=== PATIENT | male | born 1940 | race Caucasian/White ===

== ENCOUNTER 2017-06-26 10:20 | Inpatient (IN) | payer MEDICARE ==
[~2017-06-26] VITALS: Ht 185.4 cm; Wt 130.7 kg
[~2017-06-26 10:20] MED LIST: ALLO100T30 PO; ALLO300T PO; APIX2.5T PO; APIX5TAB PO; ASPI-496 PO; AZIT500T PO; AZIT600T2 PO; CIPR500T87 PO; CLIN300C93 PO; DILT120T3 PO; DILT240C PO; DILT240C9 PO; FURO-92 PO; FURO-93 PO; FURO40TA6 PO; LOSA1TAB17 PO; METF500T4 PO; METO25TA35 PO; METO25TA91 PO; OXYC10TA6 PO; POTA20TA6 PO; PRAZ2CAP2 PO; PRAZ5CAP2 PO; SPIR25TA3 PO; TAMS-11 PO; TAMS0.4C2 PO; WARF5TAB PO; ZOLP10TA PO; ZOLP10TA5 PO
[2017-06-26] MEDS ORDERED: SODIUM CHLORIDE 0.9% 1,000 ML IV ONE (10:48)
[2017-06-26] MEDS ORDERED: ONDANSETRON 2MG/ML, 2ML IVPush ONE (11:00)
[2017-06-26] MEDS ORDERED: SODIUM CHLORIDE FLUSH 10ML SYR IVF ONE (11:00)
[2017-06-26] MEDS ORDERED: SODIUM CHLORIDE 0.9% 1,000ML IVBOLUS ONE (11:00)
[2017-06-26] MEDS ORDERED: FAMOTIDINE 20 MG/2 ML IVP ONE (11:00)
[2017-06-26] MEDS ORDERED: FAMOTIDINE 20 MG/2 ML ONE (11:07)
[2017-06-26] MEDS ORDERED: ONDANSETRON 2MG/ML, 2ML ONE (11:07)
[2017-06-26] MEDS ORDERED: HYDROmorphone 1 MG/ML, 1ML ONE (11:07)
[2017-06-26] MEDS: HYDROmorphone 1 MG/ML, 1ML IVPush PRN ×3 (11:35→14:34)
[2017-06-26 11:52] LABS: ASPARTATE AMINO TRANSFERASE 15 U/L (15-37); BLOOD UREA NITROGEN 40 mg/dL (7-18)
[2017-06-26 11:57] LABS: IS PT STATUS REG ER OR PRE ER? YES
[2017-06-26] MEDS ORDERED: CEFTRIAXONE PMX 1GM/50ML 50 ML IVPB ONE (12:00)
[2017-06-26] MEDS: AZITHROMYCIN 500 MG in SODIUM CHLORIDE 0.9% 250 ML IV ONE ×2 (12:00→13:35)
[2017-06-26] MEDS ORDERED: CEFTRIAXONE PMX 1GM/50ML 50 ML ONE (12:13)
[2017-06-26] MEDS: SODIUM CHLORIDE 0.9% 1,000 ML IV SCH (14:07)
[2017-06-26] MEDS: CEFTRIAXONE PMX 2GM/50ML 50 ML IV SCH (14:30)
[2017-06-26] MEDS ORDERED: ONDANSETRON 2MG/ML, 2ML IVPush PRN (14:30)
[2017-06-26 15:00] VITALS: BP 115/73
[2017-06-26] MEDS: AZITHROMYCIN 500 MG in SODIUM CHLORIDE 0.9% 250 ML IV SCH (15:49)
[2017-06-26] MEDS: METOCLOPRAMIDE 5 MG/ML, 2ML IV SCH ×2 (16:03→23:40)
[2017-06-26] MEDS: METHYLNALTREXONE 12 MG/0.6 ML SQ SCH (16:03)
[2017-06-26] MEDS: OXYcodone IR 5MG TABLET PO PRN (16:08)
[2017-06-26 18:38] VITALS: BP 93/62
[2017-06-26] MEDS: METOPROLOL TARTRATE 25 MG TABLET PO SCH (20:56)
[2017-06-26] MEDS: APIXABAN 2.5 MG TABLET PO SCH (20:56)
[2017-06-27 02:39] VITALS: BP 110/64
[2017-06-27 05:14] LABS: ASPARTATE AMINO TRANSFERASE 12 U/L (15-37); BLOOD UREA NITROGEN 40 mg/dL (7-18)
[2017-06-27] MEDS: SODIUM CHLORIDE 0.9% 1,000 ML IV SCH ×2 (05:16→14:54)
[2017-06-27 06:44] VITALS: BP 110/65
[2017-06-27] MEDS: METOCLOPRAMIDE 5 MG/ML, 2ML IV SCH ×3 (08:25→23:02)
[2017-06-27] MEDS: LOSARTAN 50MG TABLET PO SCH ×2 (09:00→15:45)
[2017-06-27] MEDS: DILTIAZEM 240 MG CAP.ER.24H PO SCH ×2 (09:00→15:45)
[2017-06-27] MEDS: TAMSULOSIN 0.4 MG CAP.ER.24H PO SCH ×2 (09:00→15:45)
[2017-06-27] MEDS: HYDROCHLOROTHIAZIDE 25 MG TABLET PO SCH ×2 (09:00→15:45)
[2017-06-27] MEDS: APIXABAN 2.5 MG TABLET PO SCH ×2 (09:00→20:33)
[2017-06-27] MEDS: ALLOPURINOL 300 MG TABLET PO SCH ×2 (09:00→15:45)
[2017-06-27] MEDS: METOPROLOL TARTRATE 25 MG TABLET PO SCH ×2 (09:00→20:33)
[2017-06-27 13:30] VITALS: BP 115/70
[2017-06-27] MEDS: METHYLNALTREXONE 12 MG/0.6 ML SQ SCH (14:54)
[2017-06-27] MEDS: CEFTRIAXONE PMX 2GM/50ML 50 ML IV SCH (14:54)
[2017-06-27] MEDS: AZITHROMYCIN 500 MG in SODIUM CHLORIDE 0.9% 250 ML IV SCH (15:46)
[2017-06-27 18:59] VITALS: BP 115/65
[2017-06-27] MEDS: OXYcodone IR 5MG TABLET PO PRN (20:33)
[2017-06-27] MEDS: TEMAZEPAM 15 MG CAPSULE PO PRN (23:02)
[2017-06-28 03:01] VITALS: BP 117/72
[2017-06-28] MEDS: OXYcodone IR 5MG TABLET PO PRN ×4 (03:20→20:29)
[2017-06-28 07:20] VITALS: BP 110/69
[2017-06-28] MEDS: METOCLOPRAMIDE 5 MG/ML, 2ML IV SCH ×3 (07:56→23:07)
[2017-06-28] MEDS: DILTIAZEM 240 MG CAP.ER.24H PO SCH (08:25)
[2017-06-28] MEDS: HYDROCHLOROTHIAZIDE 25 MG TABLET PO SCH (08:26)
[2017-06-28] MEDS: APIXABAN 2.5 MG TABLET PO SCH ×2 (08:26→20:28)
[2017-06-28] MEDS: ALLOPURINOL 300 MG TABLET PO SCH (08:26)
[2017-06-28] MEDS: TAMSULOSIN 0.4 MG CAP.ER.24H PO SCH (08:26)
[2017-06-28] MEDS: METOPROLOL TARTRATE 25 MG TABLET PO SCH ×2 (08:26→20:28)
[2017-06-28] MEDS: LOSARTAN 50MG TABLET PO SCH (08:26)
[2017-06-28] MEDS: CEFTRIAXONE PMX 2GM/50ML 50 ML IV SCH (15:19)
[2017-06-28 16:06] VITALS: BP 117/71
[2017-06-28] MEDS: AZITHROMYCIN 500 MG in SODIUM CHLORIDE 0.9% 250 ML IV SCH (17:54)
[2017-06-28 18:40] LABS: ASPARTATE AMINO TRANSFERASE 9 U/L (15-37); BLOOD UREA NITROGEN 20 mg/dL (7-18)
[2017-06-28 20:00] VITALS: BP 101/64
[2017-06-28] MEDS: TEMAZEPAM 15 MG CAPSULE PO PRN (23:05)
[2017-06-29 02:00] VITALS: BP 116/76
[2017-06-29] MEDS: OXYcodone IR 5MG TABLET PO PRN ×2 (03:24→07:52)
[2017-06-29 06:47] VITALS: BP 127/77
[2017-06-29] MEDS: METOCLOPRAMIDE 5 MG/ML, 2ML IV SCH ×2 (07:51→15:17)
[2017-06-29] MEDS: DILTIAZEM 240 MG CAP.ER.24H PO SCH (07:51)
[2017-06-29] MEDS: METOPROLOL TARTRATE 25 MG TABLET PO SCH (07:52)
[2017-06-29] MEDS: APIXABAN 2.5 MG TABLET PO SCH (07:52)
[2017-06-29] MEDS: HYDROCHLOROTHIAZIDE 25 MG TABLET PO SCH (07:52)
[2017-06-29] MEDS: TAMSULOSIN 0.4 MG CAP.ER.24H PO SCH (07:52)
[2017-06-29] MEDS: ALLOPURINOL 300 MG TABLET PO SCH (07:52)
[2017-06-29] MEDS: LOSARTAN 50MG TABLET PO SCH (07:52)
[2017-06-29 14:22] VITALS: BP 133/68
[2017-06-29] MEDS: CEFTRIAXONE PMX 2GM/50ML 50 ML IV SCH (15:16)
[2017-06-29] MEDS: AZITHROMYCIN 500 MG in SODIUM CHLORIDE 0.9% 250 ML IV SCH (16:26)
[2017-06-29] MEDS ORDERED: AZIT500T77 PO (17:35)
[2017-06-29] MEDS ORDERED: APIXABAN 5 MG TABLET PO SCH (21:00)
== END 2017-06-29 17:50 | disposition home or self-care (01) | DRG 388 ==
LOC: ED 10:57 → EDIP 12:38 → 3NE 13:10
PROVIDERS: ADMIT Internal Medicine; ATTEND Internal Medicine
DX: K56.60 Unspecified intestinal obstruction (principal); J18.9 Pneumonia, unspecified organism; N17.9 Acute kidney failure, unspecified; J44.0 Chronic obstructive pulmonary disease with (acute) lower respiratory infection; E11.22 Type 2 diabetes mellitus with diabetic chronic kidney disease; I12.9 Hypertensive chronic kidney disease with stage 1 through stage 4 chronic kidney disease, or unspecified chronic kidney disease; I48.2 Chronic atrial fibrillation; N18.3 Chronic kidney disease, stage 3 (moderate); N20.0 Calculus of kidney; N40.0 Benign prostatic hyperplasia without lower urinary tract symptoms; Z79.01 Long term (current) use of anticoagulants; Z86.718 Personal history of other venous thrombosis and embolism
CPT/HCPCS: 36415; 71250; 74022; 74176; 80053; 81001; 83690; 84443; 84484; 85025; 87040; 87086; 87324; 93005; 96374; 96375; J0456; J0696; J1170; J2405; J2765; J7030; J7050; S0028

== ENCOUNTER 2017-11-15 15:38 | Emergency (ER) | payer MEDICARE ==
[~2017-11-15] VITALS: Ht 188 cm; Wt 100.0 kg
[~2017-11-15 15:38] MED LIST changes: +AZIT500T5 PO; -AZIT600T2 PO; +AZIT600T4 PO; +CLIN300C8 PO; -CLIN300C93 PO; -LOSA1TAB17 PO; +LOSA1TAB22 PO
[2017-11-15] MEDS ORDERED: SODIUM CHLORIDE FLUSH 10ML SYR IVF ONE (16:30)
[2017-11-15 16:43] LABS: HEMATOCRIT 38.6 % (39.2-51.8); HEMOGLOBIN 12.6 g/dL (13.7-18.0); WHITE BLOOD COUNT 8.6 x10^3/uL (3.4-10)
[2017-11-15 16:52] LABS: BLOOD UREA NITROGEN 39 mg/dL (7-18)
[2017-11-15 16:59] LABS: IS PT STATUS REG ER OR PRE ER? YES
[2017-11-15] MEDS ORDERED: FUROSEMIDE 20 MG/2 ML ONE (17:23)
[2017-11-15] MEDS ORDERED: FUROSEMIDE 20 MG/2 ML IV ONE (17:30)
[2017-11-15 18:18] VITALS: BP 118/72
== END 2017-11-15 18:45 | disposition home or self-care (01) ==
LOC: ED 18:30
DX: I48.2 Chronic atrial fibrillation (principal); I87.2 Venous insufficiency (chronic) (peripheral); I50.9 Heart failure, unspecified; E87.5 Hyperkalemia; J44.9 Chronic obstructive pulmonary disease, unspecified; M19.90 Unspecified osteoarthritis, unspecified site; E11.9 Type 2 diabetes mellitus without complications
CPT/HCPCS: 36415; 71010; 80048; 82040; 83880; 84484; 85025; 85610; 85730; 93005; 99285

== ENCOUNTER 2017-12-15 18:42 | Inpatient (IN) | payer MEDICARE ==
[~2017-12-15] VITALS: Ht 185.4 cm; Wt 122.5 kg
[2017-12-15 19:33] LABS: BASOPHILS # (AUTO) 0.04 x10^3/uL (0-0.1); BASOPHILS % (AUTO) 1 % (0-1); EOSINOPHILS # (AUTO) 0.15 x10^3/uL (0-0.4); EOSINOPHILS % (AUTO) 2 % (1-7); LYMPHOCYTES # (AUTO) 0.98 x10^3/uL (1-3.4); LYMPHOCYTES % (AUTO) 13 % (22-44); MD NO; MEAN CORPUSCULAR HGB CONC 31.8 g/dL (33.2-36.2); MEAN CORPUSCULAR VOLUME 97.4 fL (81-97); MEAN PLATELET VOLUME 8.8 fL (7.4-10.4); MONOCYTES # (AUTO) 0.59 x10^3/uL (0.2-0.8); MONOCYTES % (AUTO) 8 % (2-9); NEUTROPHILS # (AUTO) 5.61 x10^3/uL (1.8-6.8); NEUTROPHILS % (AUTO) 76 % (42-75); PLATELET COUNT 222 x10^3/uL (130-400); RED BLOOD COUNT 3.69 x10^6/uL (4.38-5.82); RED CELL DISTRIBUTION WIDTH 16.3 % (9.4-14.8)
[2017-12-15 19:44] LABS: ALBUMIN 3.3 g/dL (3.4-5.0); ANION GAP 9 mmol/L (5-15); CALCIUM 8.4 mg/dL (8.5-10.1); CHLORIDE 110 mmol/L (98-107)
[2017-12-15 19:46] LABS: SALICYLATE LEVEL < 1.7 mg/dL (2.8-20.0)
[2017-12-15 19:47] LABS: ALANINE AMINOTRANSFERASE 12 U/L (12-78); ALKALINE PHOSPHATASE 98 U/L (45-117); BILIRUBIN,TOTAL 0.7 mg/dL (0.2-1.0); CREATININE 2.91 mg/dL (0.7-1.3)
[2017-12-15 19:48] LABS: ACETAMINOPHEN < 2 mcg/mL (10-30)
[2017-12-15 19:50] LABS: INTERNATIONAL NORMALIZED RATIO 1.13 (0.93-1.1); PROTHROMBIN TIME 11.7 Seconds (9.6-11.5)
[2017-12-15 20:07] LABS: TROPONIN I < 0.015 ng/mL (0.000-0.045)
[2017-12-15] MEDS ORDERED: SODIUM CHLORIDE 0.9% 1,000 ML IV ONE (21:08)
[2017-12-15 21:10] LABS: AMPHETAMINE SCREEN, URINE Negative (Negative); BARBITURATE SCREEN, URINE Negative (Negative); BENZODIAZEPINE SCREEN, URINE Negative (Negative); CANNABINOID SCREEN, URINE Negative (Negative); COCAINE SCREEN, URINE Negative (Negative); METHADONE SCREEN, URINE Positive (Negative); OPIATE SCREEN, URINE Positive (Negative)
[2017-12-15 21:12] LABS: MICROSCOPIC NOT IND
[2017-12-15 21:23] LABS: CULTURE INDICATED? YES
[2017-12-15] MEDS ORDERED: CEFTRIAXONE PMX 1GM/50ML 50 ML IVPB ONE (21:30)
[2017-12-15] MEDS ORDERED: AZITHROMYCIN 500 MG in SODIUM CHLORIDE 0.9% 250 ML IVPB ONE (21:30)
[2017-12-15] MEDS ORDERED: CEFTRIAXONE PMX 1GM/50ML 50 ML ONE (21:36)
[2017-12-15 22:27] VITALS: BP 123/81
[2017-12-15 22:30] VITALS: BP 123/81
[2017-12-16 01:31] VITALS: BP 125/74
[2017-12-16] MEDS ORDERED: CEFTRIAXONE PMX 1GM/50ML 50 ML IV SCH (02:30)
[2017-12-16] MEDS ORDERED: OXYcodone IR 5MG TABLET PO PRN ×2 (02:30→14:30)
[2017-12-16 02:54] LABS: TROPONIN I < 0.015 ng/mL (0.000-0.045)
[2017-12-16] MEDS: METOPROLOL TARTRATE 25 MG TABLET PO SCH ×3 (02:54→17:11)
[2017-12-16] MEDS: PRAZOSIN 5 MG CAPSULE PO SCH ×2 (02:55→21:52)
[2017-12-16 03:55] VITALS: BP 106/82
[2017-12-16] MEDS: AZITHROMYCIN 250 MG in SODIUM CHLORIDE 0.9% 250 ML IV SCH (04:34)
[2017-12-16 06:00] VITALS: BP 99/63
[2017-12-16] MEDS: INSULIN LISPRO 100 UNITS/ML, PEN LOW DOSE SS SQ-INSULIN SCH ×4 (07:00→21:00)
[2017-12-16 07:44] LABS: BASOPHILS # (AUTO) 0.04 x10^3/uL (0-0.1); BASOPHILS % (AUTO) 1 % (0-1); EOSINOPHILS # (AUTO) 0.14 x10^3/uL (0-0.4); EOSINOPHILS % (AUTO) 2 % (1-7); LYMPHOCYTES # (AUTO) 1.23 x10^3/uL (1-3.4); LYMPHOCYTES % (AUTO) 19 % (22-44); MD NO; MEAN CORPUSCULAR HGB CONC 32.4 g/dL (33.2-36.2); MEAN CORPUSCULAR VOLUME 95.7 fL (81-97); MEAN PLATELET VOLUME 8.5 fL (7.4-10.4); MONOCYTES % (AUTO) 9 % (2-9); NEUTROPHILS % (AUTO) 70 % (42-75); PLATELET COUNT 188 x10^3/uL (130-400); RED BLOOD COUNT 3.41 x10^6/uL (4.38-5.82); RED CELL DISTRIBUTION WIDTH 16.5 % (9.4-14.8)
[2017-12-16 07:45] LABS: ANION GAP 8 mmol/L (5-15); CALCIUM 8.1 mg/dL (8.5-10.1); CHLORIDE 112 mmol/L (98-107); CREATININE 2.36 mg/dL (0.7-1.3)
[2017-12-16 07:46] LABS: % IRON SATURATION 35 % (20-55); ABSOLUTE RETICS # 0.03 x10^6/uL (0.5-1.5); IRON LEVEL 81 mcg/dL (65-175); RED BLOOD COUNT 3.4 x10^6/uL (4.38-5.82); RETICULOCYTE COUNT % 0.89 % (0.5-1.5); TOTAL IRON BINDING CAPACITY 231 mcg/dL (250-450)
[2017-12-16 07:51] LABS: TROPONIN I < 0.015 ng/mL (0.000-0.045)
[2017-12-16 08:12] LABS: FOLATE LEVEL 5.1 ng/mL (3.1-17.5)
[2017-12-16 08:37] LABS: HEMOGLOBIN A1C 5.9 % (4.2-6.3)
[2017-12-16] MEDS: SODIUM CHLORIDE FLUSH 3ML SYRINGE IVF SCH ×2 (08:53→21:00)
[2017-12-16] MEDS: ALLOPURINOL 100 MG TABLET PO SCH (08:53)
[2017-12-16] MEDS ORDERED: APIXABAN 2.5 MG TABLET PO SCH (09:00)
[2017-12-16 10:10] VITALS: BP 127/72
[2017-12-16 13:01] VITALS: BP 115/72
[2017-12-16] MEDS ORDERED: ZOLP10TA PO (14:00)
[2017-12-16] MEDS ORDERED: ZOLPIDEM 5MG TABLET PO PRN (14:30)
[2017-12-16] MEDS: SODIUM CHLORIDE 0.9% 1,000 ML IV SCH (17:11)
[2017-12-16 20:48] VITALS: BP 118/72
[2017-12-16] MEDS ORDERED: APIXABAN 5 MG TABLET PO SCH (21:00)
[2017-12-16] MEDS: APIXABAN 5 MG TABLET PO SCH (21:52)
[2017-12-16] MEDS: TAMSULOSIN 0.4 MG CAP.ER.24H PO SCH (21:52)
[2017-12-17] VITALS: BP 129/78
[2017-12-17] MEDS: CEFTRIAXONE 1,000 MG in SODIUM CHLORIDE 0.9% 50 ML IV SCH (02:06)
[2017-12-17] MEDS: AZITHROMYCIN 250 MG in SODIUM CHLORIDE 0.9% 250 ML IV SCH (02:44)
[2017-12-17 04:04] VITALS: BP 122/82
[2017-12-17 05:12] LABS: BASOPHILS # (AUTO) 0.03 x10^3/uL (0-0.1); BASOPHILS % (AUTO) 0 % (0-1); EOSINOPHILS # (AUTO) 0.13 x10^3/uL (0-0.4); EOSINOPHILS % (AUTO) 2 % (1-7); LYMPHOCYTES # (AUTO) 1.26 x10^3/uL (1-3.4); LYMPHOCYTES % (AUTO) 19 % (22-44); MD NO; MEAN CORPUSCULAR HEMOGLOBIN 31.3 pg (27.5-34.5); MEAN CORPUSCULAR HGB CONC 32.8 g/dL (33.2-36.2); MEAN CORPUSCULAR VOLUME 95.5 fL (81-97); MEAN PLATELET VOLUME 8.8 fL (7.4-10.4); MONOCYTES # (AUTO) 0.63 x10^3/uL (0.2-0.8); MONOCYTES % (AUTO) 10 % (2-9); NEUTROPHILS # (AUTO) 4.54 x10^3/uL (1.8-6.8); NEUTROPHILS % (AUTO) 69 % (42-75); PLATELET COUNT 179 x10^3/uL (130-400); RED BLOOD COUNT 3.27 x10^6/uL (4.38-5.82); RED CELL DISTRIBUTION WIDTH 16.4 % (9.4-14.8)
[2017-12-17 05:19] LABS: CHLORIDE 113 mmol/L (98-107)
[2017-12-17 05:28] LABS: ALANINE AMINOTRANSFERASE 10 U/L (12-78); ALBUMIN 2.7 g/dL (3.4-5.0); ALKALINE PHOSPHATASE 83 U/L (45-117); ANION GAP 6 mmol/L (5-15); BILIRUBIN,TOTAL 0.7 mg/dL (0.2-1.0); CALCIUM 7.8 mg/dL (8.5-10.1); CREATININE 2.05 mg/dL (0.7-1.3); TOTAL PROTEIN 5.9 g/dL (6.4-8.2)
[2017-12-17] MEDS: METOPROLOL TARTRATE 25 MG TABLET PO SCH ×2 (05:47→18:16)
[2017-12-17] MEDS: INSULIN LISPRO 100 UNITS/ML, PEN LOW DOSE SS SQ-INSULIN SCH ×4 (07:00→21:00)
[2017-12-17 08:22] VITALS: BP 132/85
[2017-12-17] MEDS: SODIUM CHLORIDE FLUSH 3ML SYRINGE IVF SCH ×2 (09:00→21:00)
[2017-12-17] MEDS: ALLOPURINOL 100 MG TABLET PO SCH (09:09)
[2017-12-17] MEDS: APIXABAN 5 MG TABLET PO SCH ×2 (09:10→21:27)
[2017-12-17] MEDS: SODIUM CHLORIDE 0.9% 1,000 ML IV SCH ×2 (09:10→22:32)
[2017-12-17] MEDS: HYDROCHLOROTHIAZIDE 25 MG TABLET PO SCH (09:10)
[2017-12-17] MEDS: LOSARTAN 50MG TABLET PO SCH (09:10)
[2017-12-17 11:48] LABS: % IRON SATURATION 20 % (20-55); IRON LEVEL 42 mcg/dL (65-175); TOTAL IRON BINDING CAPACITY 207 mcg/dL (250-450)
[2017-12-17 15:44] VITALS: BP 130/82
[2017-12-17 20:20] VITALS: BP 142/82
[2017-12-17] MEDS: TAMSULOSIN 0.4 MG CAP.ER.24H PO SCH (21:27)
[2017-12-17] MEDS: PRAZOSIN 5 MG CAPSULE PO SCH (21:27)
[2017-12-18 00:10] VITALS: BP 132/80
[2017-12-18] MEDS: CEFTRIAXONE 1,000 MG in SODIUM CHLORIDE 0.9% 50 ML IV SCH (02:01)
[2017-12-18] MEDS: AZITHROMYCIN 250 MG in SODIUM CHLORIDE 0.9% 250 ML IV SCH (02:41)
[2017-12-18 03:55] VITALS: BP 114/75
[2017-12-18 05:10] LABS: CHLORIDE 112 mmol/L (98-107)
[2017-12-18] MEDS: METOPROLOL TARTRATE 25 MG TABLET PO SCH ×2 (05:36→17:12)
[2017-12-18 05:41] LABS: % IRON SATURATION 22 % (20-55); ANION GAP 6 mmol/L (5-15); CALCIUM 7.9 mg/dL (8.5-10.1); CREATININE 1.56 mg/dL (0.7-1.3); IRON LEVEL 48 mcg/dL (65-175); TOTAL IRON BINDING CAPACITY 215 mcg/dL (250-450)
[2017-12-18 06:38] VITALS: BP 131/76
[2017-12-18] MEDS: INSULIN LISPRO 100 UNITS/ML, PEN LOW DOSE SS SQ-INSULIN SCH ×4 (07:00→20:12)
[2017-12-18] MEDS: SODIUM CHLORIDE FLUSH 3ML SYRINGE IVF SCH ×2 (09:00→20:16)
[2017-12-18] MEDS: ALLOPURINOL 100 MG TABLET PO SCH (09:01)
[2017-12-18] MEDS: LOSARTAN 50MG TABLET PO SCH (09:01)
[2017-12-18] MEDS: HYDROCHLOROTHIAZIDE 25 MG TABLET PO SCH (09:01)
[2017-12-18] MEDS: APIXABAN 5 MG TABLET PO SCH ×2 (09:01→20:12)
[2017-12-18 13:00] VITALS: BP 118/77
[2017-12-18] MEDS: SODIUM CHLORIDE 0.9% 1,000 ML IV SCH (16:13)
[2017-12-18 17:01] VITALS: BP 135/85
[2017-12-18] MEDS: FERROUS SULFATE 325 MG TABLET PO SCH (17:12)
[2017-12-18 18:28] VITALS: BP 130/70
[2017-12-18] MEDS: TAMSULOSIN 0.4 MG CAP.ER.24H PO SCH (20:12)
[2017-12-18] MEDS: PRAZOSIN 5 MG CAPSULE PO SCH (20:12)
[2017-12-19 01:16] VITALS: BP 128/78
[2017-12-19] MEDS: CEFTRIAXONE 1,000 MG in SODIUM CHLORIDE 0.9% 50 ML IV SCH (03:05)
[2017-12-19] MEDS: AZITHROMYCIN 250 MG in SODIUM CHLORIDE 0.9% 250 ML IV SCH (03:53)
[2017-12-19 05:06] LABS: ANION GAP 5 mmol/L (5-15); CALCIUM 7.7 mg/dL (8.5-10.1); CHLORIDE 112 mmol/L (98-107)
[2017-12-19] MEDS: METOPROLOL TARTRATE 25 MG TABLET PO SCH ×2 (05:26→18:15)
[2017-12-19 06:42] VITALS: BP 138/87
[2017-12-19] MEDS: SODIUM CHLORIDE 0.9% 1,000 ML IV SCH (06:42)
[2017-12-19] MEDS: INSULIN LISPRO 100 UNITS/ML, PEN LOW DOSE SS SQ-INSULIN SCH ×4 (07:00→20:14)
[2017-12-19] MEDS: FERROUS SULFATE 325 MG TABLET PO SCH ×2 (08:33→16:20)
[2017-12-19] MEDS: SODIUM CHLORIDE FLUSH 3ML SYRINGE IVF SCH ×2 (09:00→20:12)
[2017-12-19] MEDS: APIXABAN 5 MG TABLET PO SCH ×2 (09:34→20:13)
[2017-12-19] MEDS: LOSARTAN 50MG TABLET PO SCH (09:34)
[2017-12-19] MEDS: HYDROCHLOROTHIAZIDE 25 MG TABLET PO SCH (09:35)
[2017-12-19] MEDS: ALLOPURINOL 100 MG TABLET PO SCH (09:37)
[2017-12-19 12:42] VITALS: BP 123/78
[2017-12-19] MEDS: TAMSULOSIN 0.4 MG CAP.ER.24H PO SCH (20:13)
[2017-12-19] MEDS: PRAZOSIN 5 MG CAPSULE PO SCH (20:13)
[2017-12-19 20:14] VITALS: BP 167/88
[2017-12-20 01:33] VITALS: BP 127/79
[2017-12-20] MEDS: CEFTRIAXONE 1,000 MG in SODIUM CHLORIDE 0.9% 50 ML IV SCH (02:15)
[2017-12-20] MEDS: AZITHROMYCIN 250 MG in SODIUM CHLORIDE 0.9% 250 ML IV SCH (03:34)
[2017-12-20] MEDS: METOPROLOL TARTRATE 25 MG TABLET PO SCH (05:42)
[2017-12-20 06:45] VITALS: BP 142/87
[2017-12-20] MEDS: INSULIN LISPRO 100 UNITS/ML, PEN LOW DOSE SS SQ-INSULIN SCH ×2 (07:00→11:00)
[2017-12-20] MEDS: FERROUS SULFATE 325 MG TABLET PO SCH (07:45)
[2017-12-20] MEDS: SODIUM CHLORIDE FLUSH 3ML SYRINGE IVF SCH (09:47)
[2017-12-20] MEDS: ALLOPURINOL 100 MG TABLET PO SCH (09:48)
[2017-12-20] MEDS: APIXABAN 5 MG TABLET PO SCH (09:48)
[2017-12-20] MEDS: HYDROCHLOROTHIAZIDE 25 MG TABLET PO SCH (09:48)
[2017-12-20] MEDS: LOSARTAN 50MG TABLET PO SCH (09:50)
[2017-12-20 13:15] VITALS: BP 128/76
[2017-12-20] MEDS ORDERED: FERR-36 PO (13:49)
== END 2017-12-20 16:52 | disposition home health service (06) | DRG 70 ==
LOC: ED 20:47 → EDIP 21:09 → 4WST 22:13
PROVIDERS: ADMIT Internal Medicine; ATTEND Internal Medicine
DX: G93.40 Encephalopathy, unspecified (principal); J15.9 Unspecified bacterial pneumonia; J96.01 Acute respiratory failure with hypoxia; N17.9 Acute kidney failure, unspecified; E11.22 Type 2 diabetes mellitus with diabetic chronic kidney disease; D68.69 Other thrombophilia; E87.5 Hyperkalemia; I13.0 Hypertensive heart and chronic kidney disease with heart failure and stage 1 through stage 4 chronic kidney disease, or unspecified chronic kidney disease; F11.20 Opioid dependence, uncomplicated; I50.9 Heart failure, unspecified; J44.0 Chronic obstructive pulmonary disease with (acute) lower respiratory infection; N39.0 Urinary tract infection, site not specified; L03.115 Cellulitis of right lower limb; L03.116 Cellulitis of left lower limb; N18.3 Chronic kidney disease, stage 3 (moderate); Z66 Do not resuscitate; E66.9 Obesity, unspecified; E86.0 Dehydration; I35.0 Nonrheumatic aortic (valve) stenosis; I87.2 Venous insufficiency (chronic) (peripheral); I87.8 Other specified disorders of veins; I89.0 Lymphedema, not elsewhere classified; M10.9 Gout, unspecified; I27.29 Other secondary pulmonary hypertension; I48.2 Chronic atrial fibrillation; Z96.1 Presence of intraocular lens; Z96.651 Presence of right artificial knee joint; D63.8 Anemia in other chronic diseases classified elsewhere; M17.12 Unilateral primary osteoarthritis, left knee; N40.0 Benign prostatic hyperplasia without lower urinary tract symptoms; E61.1 Iron deficiency; Z68.35 Body mass index [BMI] 35.0-35.9, adult; Z79.01 Long term (current) use of anticoagulants; Z79.84 Long term (current) use of oral hypoglycemic drugs; Z79.899 Other long term (current) drug therapy; Z82.5 Family history of asthma and other chronic lower respiratory diseases; Z86.718 Personal history of other venous thrombosis and embolism; Z87.442 Personal history of urinary calculi; Z98.41 Cataract extraction status, right eye; Z98.42 Cataract extraction status, left eye; Z99.81 Dependence on supplemental oxygen; J01.20 Acute ethmoidal sinusitis, unspecified; J32.3 Chronic sphenoidal sinusitis
CPT/HCPCS: 36415; 70450; 71045; 80048; 80053; 80307; 80329; 81003; 82140; 82607; 82728; 82746; 82962; 83036; 83540; 83550; 83605; 83880; 84443; 84484; 85025; 85045; 85610; 87040; 87077; 87086; 87186; 93005; 93306; 93922; 96374; J0456; J0696; 29581-50; G0480; J1815; J7030; J7050

== ENCOUNTER 2018-01-03 21:59 | Inpatient (IN) | payer MEDICARE ==
[~2018-01-03] VITALS: Ht 185.4 cm; Wt 118.7 kg
[~2018-01-03 21:59] MED LIST changes: +FERR-51 PO
[2018-01-03] MEDS ORDERED: SODIUM CHLORIDE 0.9% 1,000ML IVBOLUS ONE (22:30)
[2018-01-03 23:03] LABS: BASOPHILS # (AUTO) 0.05 x10^3/uL (0-0.1); BASOPHILS % (AUTO) 1 % (0-1); EOSINOPHILS # (AUTO) 0.11 x10^3/uL (0-0.4); EOSINOPHILS % (AUTO) 1 % (1-7); LYMPHOCYTES # (AUTO) 1.27 x10^3/uL (1-3.4); LYMPHOCYTES % (AUTO) 13 % (22-44); MD NO; MEAN CORPUSCULAR HGB CONC 32.8 g/dL (33.2-36.2); MEAN CORPUSCULAR VOLUME 94.7 fL (81-97); MEAN PLATELET VOLUME 9.6 fL (7.4-10.4); MONOCYTES # (AUTO) 0.64 x10^3/uL (0.2-0.8); MONOCYTES % (AUTO) 6 % (2-9); NEUTROPHILS % (AUTO) 80 % (42-75); PLATELET COUNT 215 x10^3/uL (130-400); RED BLOOD COUNT 3.61 x10^6/uL (4.38-5.82); RED CELL DISTRIBUTION WIDTH 16.3 % (9.4-14.8)
[2018-01-03 23:19] LABS: ALBUMIN 3.4 g/dL (3.4-5.0); ANION GAP 14 mmol/L (5-15); CHLORIDE 105 mmol/L (98-107)
[2018-01-03 23:24] LABS: ALANINE AMINOTRANSFERASE 11 U/L (12-78); ALKALINE PHOSPHATASE 104 U/L (45-117); BILIRUBIN,TOTAL 0.6 mg/dL (0.2-1.0); CREATININE 7.11 mg/dL (0.7-1.3); TROPONIN I < 0.015 ng/mL (0.000-0.045)
[2018-01-03 23:27] LABS: MICROSCOPIC AUTO
[2018-01-03 23:28] LABS: CULTURE INDICATED? YES
[2018-01-03] MEDS ORDERED: CEFTRIAXONE PMX 1GM/50ML 50 ML ONE (23:52)
[2018-01-04] MEDS ORDERED: CEFTRIAXONE PMX 1GM/50ML 50 ML IV ONE
[2018-01-04] MEDS ORDERED: SODIUM CHLORIDE 0.9% 1,000ML IVBOLUS ONE
[2018-01-04] MEDS ORDERED: ONDANSETRON 2MG/ML, 2ML IVPush PRN ×2 (00:30→01:00)
[2018-01-04] MEDS: SODIUM CHLORIDE 0.9% 1,000 ML IV SCH ×3 (01:00→20:21)
[2018-01-04 03:52] VITALS: BP 85/52
[2018-01-04 04:00] VITALS: BP 79/34
[2018-01-04] MEDS ORDERED: ATROPINE SYRINGE 0.1 MG/ML, 10ML ONE (04:30)
[2018-01-04 04:46] LABS: ALBUMIN 2.9 g/dL (3.4-5.0); ANION GAP 11 mmol/L (5-15); BASOPHILS # (AUTO) 0.05 x10^3/uL (0-0.1); BASOPHILS % (AUTO) 1 % (0-1); CALCIUM 7.4 mg/dL (8.5-10.1); CHLORIDE 111 mmol/L (98-107); EOSINOPHILS # (AUTO) 0.28 x10^3/uL (0-0.4); EOSINOPHILS % (AUTO) 3 % (1-7); LYMPHOCYTES # (AUTO) 1.74 x10^3/uL (1-3.4); LYMPHOCYTES % (AUTO) 18 % (22-44); MD NO; MEAN CORPUSCULAR HEMOGLOBIN 31.1 pg (27.5-34.5); MEAN CORPUSCULAR HGB CONC 32.3 g/dL (33.2-36.2); MEAN CORPUSCULAR VOLUME 96.2 fL (81-97); MONOCYTES # (AUTO) 0.75 x10^3/uL (0.2-0.8); MONOCYTES % (AUTO) 8 % (2-9); NEUTROPHILS # (AUTO) 6.78 x10^3/uL (1.8-6.8); NEUTROPHILS % (AUTO) 71 % (42-75); PLATELET COUNT 175 x10^3/uL (130-400); RED CELL DISTRIBUTION WIDTH 16.2 % (9.4-14.8)
[2018-01-04] MEDS: APIXABAN 2.5 MG TABLET PO SCH ×3 (04:46→20:19)
[2018-01-04 04:49] LABS: ALANINE AMINOTRANSFERASE 9 U/L (12-78); ALKALINE PHOSPHATASE 90 U/L (45-117); BILIRUBIN,TOTAL 0.4 mg/dL (0.2-1.0); CREATININE 6.82 mg/dL (0.7-1.3); TOTAL PROTEIN 5.8 g/dL (6.4-8.2)
[2018-01-04] MEDS ORDERED: ATROPINE SYRINGE 0.1 MG/ML, 10ML IVPush PRN (05:00)
[2018-01-04] MEDS ORDERED: SODIUM CHLORIDE 0.9%, 500ML IV ONE (05:00)
[2018-01-04] MEDS ORDERED: SODIUM CHLORIDE 0.9% 1,000 ML IV SCH (05:00)
[2018-01-04] MEDS ORDERED: ATROPINE SYRINGE 0.1 MG/ML, 10ML IVPush ONE (05:00)
[2018-01-04 06:30] LABS: ALANINE AMINOTRANSFERASE 8 U/L (12-78); ALBUMIN 2.8 g/dL (3.4-5.0); ANION GAP 10 mmol/L (5-15); CALCIUM 7.4 mg/dL (8.5-10.1); CHLORIDE 111 mmol/L (98-107)
[2018-01-04 06:34] LABS: ALKALINE PHOSPHATASE 90 U/L (45-117); BILIRUBIN,TOTAL 0.5 mg/dL (0.2-1.0); TOTAL PROTEIN 5.8 g/dL (6.4-8.2); TROPONIN I < 0.015 ng/mL (0.000-0.045)
[2018-01-04] MEDS ORDERED: SODIUM CHLORIDE 0.9% 1,000ML IV ONE (09:00)
[2018-01-04] MEDS ORDERED: METHADONE 10 MG TABLET PO SCH (09:00)
[2018-01-04] MEDS ORDERED: GLUCAGON 1 MG IVPush ONE (10:00)
[2018-01-04] MEDS: POLYETHYLENE GLYCOL 17 GM PACKET PO SCH (11:31)
[2018-01-04] MEDS: INSULIN LISPRO 100 UNITS/ML, PEN SQ-INSULIN SCH ×3 (11:41→20:24)
[2018-01-04] MEDS: DOBUTAMINE 250 MG in SODIUM CHLORIDE 0.9% 230 ML IV PRN ×2 (15:53→20:20)
[2018-01-04] MEDS ORDERED: ALLOPURINOL 100 MG TABLET PO SCH (21:00)
[2018-01-04] MEDS ORDERED: TAMSULOSIN 0.4 MG CAP.ER.24H PO SCH (21:00)
[2018-01-04] MEDS: CEFTRIAXONE PMX 1GM/50ML 50 ML IV SCH (23:00)
[2018-01-05] MEDS: DOBUTAMINE 250 MG in SODIUM CHLORIDE 0.9% 230 ML IV PRN ×2 (02:57→08:13)
[2018-01-05] MEDS: METHADONE 10 MG TABLET PO PRN (03:24)
[2018-01-05 03:30] VITALS: BP 117/50
[2018-01-05 04:52] LABS: ALANINE AMINOTRANSFERASE 9 U/L (12-78); ALBUMIN 2.6 g/dL (3.4-5.0); ANION GAP 7 mmol/L (5-15); CALCIUM 6.8 mg/dL (8.5-10.1); CHLORIDE 115 mmol/L (98-107); CREATININE 5.09 mg/dL (0.7-1.3)
[2018-01-05 04:55] LABS: % IRON SATURATION 20 % (20-55); ALKALINE PHOSPHATASE 87 U/L (45-117); BILIRUBIN,TOTAL 0.8 mg/dL (0.2-1.0); IRON LEVEL 40 mcg/dL (65-175); TOTAL IRON BINDING CAPACITY 200 mcg/dL (250-450); TOTAL PROTEIN 5.1 g/dL (6.4-8.2)
[2018-01-05 05:45] LABS: BASOPHILS # (AUTO) 0.15 x10^3/uL (0-0.1); BASOPHILS % (AUTO) 2 % (0-1); EOSINOPHILS # (AUTO) 0.08 x10^3/uL (0-0.4); EOSINOPHILS % (AUTO) 1 % (1-7); LYMPHOCYTES # (AUTO) 1.17 x10^3/uL (1-3.4); LYMPHOCYTES % (AUTO) 14 % (22-44); MD SCAN; MEAN CORPUSCULAR HEMOGLOBIN 31.5 pg (27.5-34.5); MEAN CORPUSCULAR VOLUME 95.7 fL (81-97); MEAN PLATELET VOLUME 9.2 fL (7.4-10.4); MONOCYTES # (AUTO) 0.69 x10^3/uL (0.2-0.8); MONOCYTES % (AUTO) 8 % (2-9); NEUTROPHILS # (AUTO) 6.21 x10^3/uL (1.8-6.8); NEUTROPHILS % (AUTO) 75 % (42-75); PLATELET COUNT 121 x10^3/uL (130-400); RED BLOOD COUNT 2.97 x10^6/uL (4.38-5.82); RED CELL DISTRIBUTION WIDTH 16.5 % (9.4-14.8)
[2018-01-05] MEDS: INSULIN LISPRO 100 UNITS/ML, PEN SQ-INSULIN SCH ×4 (07:00→21:29)
[2018-01-05 07:31] LABS: CREATININE,URINE RANDOM 70.1 mg/dL
[2018-01-05] MEDS: SODIUM CHLORIDE 0.9% 1,000 ML IV SCH ×2 (08:00→15:34)
[2018-01-05] MEDS: POLYETHYLENE GLYCOL 17 GM PACKET PO SCH (09:33)
[2018-01-05] MEDS: APIXABAN 2.5 MG TABLET PO SCH ×2 (09:33→21:30)
[2018-01-05] MEDS: CEFTRIAXONE PMX 1GM/50ML 50 ML IV SCH (23:52)
[2018-01-06] MEDS: SODIUM CHLORIDE 0.9% 1,000 ML IV SCH ×2 (02:10→12:50)
[2018-01-06 04:00] VITALS: BP 106/51
[2018-01-06 05:30] LABS: BASOPHILS # (AUTO) 0.03 x10^3/uL (0-0.1); BASOPHILS % (AUTO) 0 % (0-1); EOSINOPHILS # (AUTO) 0.35 x10^3/uL (0-0.4); EOSINOPHILS % (AUTO) 4 % (1-7); LYMPHOCYTES # (AUTO) 1.31 x10^3/uL (1-3.4); LYMPHOCYTES % (AUTO) 16 % (22-44); MD NO; MEAN CORPUSCULAR HEMOGLOBIN 31.1 pg (27.5-34.5); MEAN CORPUSCULAR HGB CONC 32.3 g/dL (33.2-36.2); MEAN CORPUSCULAR VOLUME 96.2 fL (81-97); MEAN PLATELET VOLUME 9.1 fL (7.4-10.4); MONOCYTES # (AUTO) 0.75 x10^3/uL (0.2-0.8); MONOCYTES % (AUTO) 9 % (2-9); NEUTROPHILS # (AUTO) 5.91 x10^3/uL (1.8-6.8); NEUTROPHILS % (AUTO) 71 % (42-75); PLATELET COUNT 173 x10^3/uL (130-400); RED BLOOD COUNT 3.05 x10^6/uL (4.38-5.82); RED CELL DISTRIBUTION WIDTH 16.9 % (9.4-14.8)
[2018-01-06 05:35] LABS: ALANINE AMINOTRANSFERASE 12 U/L (12-78); ALBUMIN 2.5 g/dL (3.4-5.0); ANION GAP 6 mmol/L (5-15); CALCIUM 7.2 mg/dL (8.5-10.1); CHLORIDE 116 mmol/L (98-107); CREATININE 3.07 mg/dL (0.7-1.3)
[2018-01-06 05:38] LABS: ALKALINE PHOSPHATASE 81 U/L (45-117); BILIRUBIN,TOTAL 0.6 mg/dL (0.2-1.0); TOTAL PROTEIN 5.2 g/dL (6.4-8.2)
[2018-01-06] MEDS: INSULIN LISPRO 100 UNITS/ML, PEN SQ-INSULIN SCH ×4 (07:00→21:00)
[2018-01-06 07:40] VITALS: BP 125/65
[2018-01-06] MEDS: POLYETHYLENE GLYCOL 17 GM PACKET PO SCH (10:55)
[2018-01-06] MEDS: APIXABAN 2.5 MG TABLET PO SCH ×2 (10:55→21:48)
[2018-01-06 13:23] VITALS: BP 132/71
[2018-01-06] MEDS: FUROSEMIDE 20 MG TABLET PO SCH (16:47)
[2018-01-06 18:47] VITALS: BP 117/74
[2018-01-06] MEDS: METHADONE 10 MG TABLET PO PRN (23:18)
[2018-01-07] MEDS: CEFTRIAXONE PMX 1GM/50ML 50 ML IV SCH ×2 (00:02→23:49)
[2018-01-07 01:00] VITALS: BP 131/78
[2018-01-07] MEDS: INSULIN LISPRO 100 UNITS/ML, PEN SQ-INSULIN SCH ×4 (07:50→21:14)
[2018-01-07] MEDS: POLYETHYLENE GLYCOL 17 GM PACKET PO SCH (08:02)
[2018-01-07] MEDS: FUROSEMIDE 20 MG TABLET PO SCH ×2 (08:02→21:08)
[2018-01-07] MEDS: APIXABAN 2.5 MG TABLET PO SCH ×2 (08:02→21:09)
[2018-01-07 09:05] VITALS: BP 113/72
[2018-01-07] MEDS: METHADONE 10 MG TABLET PO PRN ×2 (11:21→21:09)
[2018-01-07 13:14] VITALS: BP 139/83
[2018-01-07] MEDS: METOPROLOL TARTRATE 25 MG TABLET PO SCH (17:01)
[2018-01-07 21:06] VITALS: BP 133/82
[2018-01-07] MEDS: ZOLPIDEM 10MG TABLET PO PRN (22:32)
[2018-01-08 02:15] VITALS: BP 116/68
[2018-01-08 04:33] LABS: ALANINE AMINOTRANSFERASE 8 U/L (12-78); ALBUMIN 2.5 g/dL (3.4-5.0); ANION GAP 7 mmol/L (5-15); CALCIUM 7.6 mg/dL (8.5-10.1); CHLORIDE 108 mmol/L (98-107); CREATININE 1.69 mg/dL (0.7-1.3)
[2018-01-08 04:36] LABS: ALKALINE PHOSPHATASE 82 U/L (45-117); BILIRUBIN,TOTAL 0.5 mg/dL (0.2-1.0); TOTAL PROTEIN 5.7 g/dL (6.4-8.2)
[2018-01-08] MEDS: METOPROLOL TARTRATE 25 MG TABLET PO SCH ×2 (05:46→16:55)
[2018-01-08] MEDS: METHADONE 10 MG TABLET PO PRN ×2 (05:46→16:58)
[2018-01-08] MEDS: INSULIN LISPRO 100 UNITS/ML, PEN SQ-INSULIN SCH ×4 (07:00→19:40)
[2018-01-08] MEDS: FUROSEMIDE 20 MG TABLET PO SCH ×2 (09:00→09:49)
[2018-01-08] MEDS: APIXABAN 2.5 MG TABLET PO SCH ×2 (09:49→19:39)
[2018-01-08] MEDS: POLYETHYLENE GLYCOL 17 GM PACKET PO SCH (09:49)
[2018-01-08 09:58] VITALS: BP 112/72
[2018-01-08 14:15] VITALS: BP 102/68
[2018-01-08 16:54] VITALS: BP 103/67
[2018-01-08 19:38] VITALS: BP 116/77
[2018-01-08] MEDS: ZOLPIDEM 10MG TABLET PO PRN (22:27)
[2018-01-08 23:53] VITALS: BP 103/61
[2018-01-09] MEDS: CEFTRIAXONE PMX 1GM/50ML 50 ML IV SCH (01:38)
[2018-01-09] MEDS: METHADONE 10 MG TABLET PO PRN (01:43)
[2018-01-09 06:03] VITALS: BP 117/76
[2018-01-09] MEDS: METOPROLOL TARTRATE 25 MG TABLET PO SCH (06:05)
[2018-01-09] MEDS: INSULIN LISPRO 100 UNITS/ML, PEN SQ-INSULIN SCH ×2 (07:00→11:00)
[2018-01-09 07:58] VITALS: BP 105/70
[2018-01-09] MEDS: FUROSEMIDE 20 MG TABLET PO SCH (08:06)
[2018-01-09] MEDS: APIXABAN 2.5 MG TABLET PO SCH (08:07)
[2018-01-09] MEDS: POLYETHYLENE GLYCOL 17 GM PACKET PO SCH (08:07)
[2018-01-09 08:11] VITALS: BP 146/98
[2018-01-09 10:49] VITALS: BP 94/62
[2018-01-09 12:40] VITALS: BP 105/70
[2018-01-09] MEDS ORDERED: FURO20TA3 PO (14:01)
== END 2018-01-09 15:54 | disposition home or self-care (01) | DRG 871 ==
LOC: ED 22:57 → EDIP 01-04 00:30 → CCU 01-04 03:28 → 5SO 01-06 07:39 → 4EST 01-09 10:53 → DCLOUNGE 01-09 15:39
PROVIDERS: ADMIT Internal Medicine; ATTEND Internal Medicine
PROC: 02HV33Z Insertion of Infusion Device into Superior Vena Cava, Percutaneous Approach (ICD-10-PCS; principal; 2018-01-04)
PROC: B548ZZA Ultrasonography of Superior Vena Cava, Guidance (ICD-10-PCS; 2018-01-04)
DX: A41.9 Sepsis, unspecified organism (principal); J96.20 Acute and chronic respiratory failure, unspecified whether with hypoxia or hypercapnia; N17.0 Acute kidney failure with tubular necrosis; G93.41 Metabolic encephalopathy; D68.59 Other primary thrombophilia; E11.22 Type 2 diabetes mellitus with diabetic chronic kidney disease; E11.51 Type 2 diabetes mellitus with diabetic peripheral angiopathy without gangrene; N18.3 Chronic kidney disease, stage 3 (moderate); E87.2 Acidosis; F11.20 Opioid dependence, uncomplicated; I13.0 Hypertensive heart and chronic kidney disease with heart failure and stage 1 through stage 4 chronic kidney disease, or unspecified chronic kidney disease; J44.0 Chronic obstructive pulmonary disease with (acute) lower respiratory infection; D63.8 Anemia in other chronic diseases classified elsewhere; E55.9 Vitamin D deficiency, unspecified; E66.9 Obesity, unspecified; Z68.34 Body mass index [BMI] 34.0-34.9, adult; E78.5 Hyperlipidemia, unspecified; F03.90 Unspecified dementia, unspecified severity, without behavioral disturbance, psychotic disturbance, mood disturbance, and anxiety; F17.200 Nicotine dependence, unspecified, uncomplicated; I25.10 Atherosclerotic heart disease of native coronary artery without angina pectoris; I27.21 Secondary pulmonary arterial hypertension; I27.81 Cor pulmonale (chronic); I48.2 Chronic atrial fibrillation; I50.9 Heart failure, unspecified; I87.8 Other specified disorders of veins; I89.0 Lymphedema, not elsewhere classified; I95.2 Hypotension due to drugs; M10.9 Gout, unspecified; M17.12 Unilateral primary osteoarthritis, left knee; N20.0 Calculus of kidney; N30.91 Cystitis, unspecified with hematuria; Z96.1 Presence of intraocular lens; Z96.651 Presence of right artificial knee joint; N40.0 Benign prostatic hyperplasia without lower urinary tract symptoms; M25.562 Pain in left knee; G89.29 Other chronic pain; Z66 Do not resuscitate; Z79.01 Long term (current) use of anticoagulants; Z82.5 Family history of asthma and other chronic lower respiratory diseases; Z86.718 Personal history of other venous thrombosis and embolism; Z87.01 Personal history of pneumonia (recurrent); Z87.440 Personal history of urinary (tract) infections; Z87.442 Personal history of urinary calculi; Z98.41 Cataract extraction status, right eye; Z98.42 Cataract extraction status, left eye; Z99.81 Dependence on supplemental oxygen; Z79.899 Other long term (current) drug therapy
CPT/HCPCS: 36415; 36569; 71045; 76770; 76937; 77001; 80053; 81001; 82306; 82533; 82570; 82728; 82962; 83540; 83550; 83605; 83735; 83880; 83970; 84100; 84145; 84155; 84156; 84165; 84166; 84443; 84484; 85025; 87040; 87081; 87086; 93005; 96361; 96365; J0461; J0696; C1751; J1250; J1610; J1815; J7030; J7040; J7050

== ENCOUNTER 2018-07-21 14:13 | Emergency (ER) | payer MEDICARE ==
[~2018-07-21] VITALS: Ht 188 cm; Wt 122.7 kg
[~2018-07-21 14:13] MED LIST changes: +FURO20TA3 PO; -METF500T4 PO; +METF500T5 PO; -SPIR25TA3 PO; +SPIR25TA5 PO
[2018-07-21] MEDS ORDERED: SODIUM CHLORIDE FLUSH 10ML SYR IVF ONE (14:30)
[2018-07-21 14:56] LABS: BASOPHILS # (AUTO) 0.04 x10^3/uL (0-0.1); BASOPHILS % (AUTO) 0 % (0-1); EOSINOPHILS # (AUTO) 0.15 x10^3/uL (0-0.4); EOSINOPHILS % (AUTO) 2 % (1-7); LYMPHOCYTES # (AUTO) 1.33 x10^3/uL (1-3.4); LYMPHOCYTES % (AUTO) 13 % (22-44); MD NO; MEAN CORPUSCULAR HEMOGLOBIN 31.6 pg (27.5-34.5); MEAN CORPUSCULAR HGB CONC 32.9 g/dL (33.2-36.2); MEAN CORPUSCULAR VOLUME 95.9 fL (81-97); MONOCYTES # (AUTO) 0.93 x10^3/uL (0.2-0.8); MONOCYTES % (AUTO) 9 % (2-9); NEUTROPHILS # (AUTO) 7.57 x10^3/uL (1.8-6.8); NEUTROPHILS % (AUTO) 76 % (42-75); PLATELET COUNT 263 x10^3/uL (130-400); RED BLOOD COUNT 4.32 x10^6/uL (4.38-5.82); RED CELL DISTRIBUTION WIDTH 15.5 % (9.4-14.8)
[2018-07-21 15:25] LABS: ALBUMIN 3.1 g/dL (3.4-5.0); ANION GAP 9 mmol/L (5-15); CALCIUM 8.5 mg/dL (8.5-10.1); CHLORIDE 111 mmol/L (98-107); CREATININE 1.82 mg/dL (0.7-1.3)
[2018-07-21] MEDS ORDERED: AMPICILLIN/SULBACTAM 3 GM in SODIUM CHLORIDE 0.9% 100 ML IV ONE (15:30)
[2018-07-21] MEDS ORDERED: ASPI-496 PO (15:43)
[2018-07-21] MEDS ORDERED: METH-356 PO (15:43)
[2018-07-21 17:15] VITALS: BP 140/80
== END 2018-07-21 17:18 | disposition home or self-care (01) ==
LOC: ED 17:15
DX: L03.116 Cellulitis of left lower limb (principal); L03.032 Cellulitis of left toe; I10 Essential (primary) hypertension; E11.9 Type 2 diabetes mellitus without complications; J44.9 Chronic obstructive pulmonary disease, unspecified; I48.91 Unspecified atrial fibrillation; Z86.718 Personal history of other venous thrombosis and embolism; M19.90 Unspecified osteoarthritis, unspecified site
CPT/HCPCS: 36415; 73630; 80048; 82040; 85025; 96365; 99285; J0295

== ENCOUNTER 2019-06-18 23:22 | Inpatient (IN) | payer MEDICARE ==
[~2019-06-18] VITALS: Ht 185.4 cm; Wt 132.0 kg
[2019-06-23 12:07] VITALS: BP 115/78
== END 2019-06-23 16:00 | disposition home or self-care (01) | DRG 190 ==
LOC: ED 06-19 00:25 → 4EST 06-19 00:30 → ED 06-19 00:52
PROVIDERS: ADMIT Internal Medicine; ATTEND Internal Medicine
DX: J44.1 Chronic obstructive pulmonary disease with (acute) exacerbation (principal); N17.0 Acute kidney failure with tubular necrosis; F11.20 Opioid dependence, uncomplicated; J96.10 Chronic respiratory failure, unspecified whether with hypoxia or hypercapnia; E87.5 Hyperkalemia; N18.9 Chronic kidney disease, unspecified; E11.22 Type 2 diabetes mellitus with diabetic chronic kidney disease; I12.9 Hypertensive chronic kidney disease with stage 1 through stage 4 chronic kidney disease, or unspecified chronic kidney disease; I48.2 Chronic atrial fibrillation; G89.29 Other chronic pain; I89.0 Lymphedema, not elsewhere classified; Z79.01 Long term (current) use of anticoagulants; Z87.891 Personal history of nicotine dependence; Z99.81 Dependence on supplemental oxygen; Z87.01 Personal history of pneumonia (recurrent)
CPT/HCPCS: 36415; 71045; 80048; 80053; 83036; 83735; 83880; 84100; 84484; 85025; 93005; 94640; 99285; G0378; J7620; J2930; J7120

== ENCOUNTER 2019-12-03 22:16 | Inpatient (IN) | payer MEDICARE ==
[~2019-12-03] VITALS: Ht 185.4 cm; Wt 119.6 kg
[~2019-12-03 22:16] MED LIST changes: +AMOX1TAB12 PO; +AZIT500T10 PO; -AZIT500T5 PO; -DILT240C PO; +DILT240C81 PO; +METF500T17 PO; -METF500T5 PO; +METH10TA2 PO
--- NOTE | 2019-12-03 22:44 | NUR ---
BREAK RN: FAMILY REPORTS PT IS WEAK AND DISORIENTED TODAY. PT REPORTS SOB. PT IS SUPPOSED TO BE ON HOME OXYGEN BUT HAS NOT BEEN USING IT. FAMILY AT BEDSIDE. PT SEEN BY DR MALDONADO. CARDIAC MONT[place] ON. VS STABLE. CALL LIGHT IN PLACE. WILL CONTINUE TO MONIO.
--- NOTE | 2019-12-03 22:48 | NUR ---
REPORT GIVEN TO CLEMENTE IVEY
--- NOTE | 2019-12-03 22:53 | NUR ---
PT REPORTS HE HAS A RED SORE SPOT ON HIS BACK. UCHE Brian RN AWARE.
[2019-12-03] MEDS ORDERED: METO25TA35 PO (23:05)
[2019-12-03] MEDS ORDERED: FURO20TA3 PO (23:06)
[2019-12-03] MEDS ORDERED: ALLO300T PO (23:06)
--- NOTE | 2019-12-03 23:24 | NUR ---
PATIENT TO IMAGING
[2019-12-03 23:27] LABS: MEAN CORPUSCULAR HEMOGLOBIN 29.9 pg (27.5-34.5); MEAN CORPUSCULAR HGB CONC 32.3 g/dL (33.2-36.2); MEAN CORPUSCULAR VOLUME 92.5 fL (81-97); MEAN PLATELET VOLUME 9.2 fL (7.4-10.4); PLATELET COUNT 204 x10^3/uL (130-400)
[2019-12-03 23:39] LABS: ALANINE AMINOTRANSFERASE 12 U/L (12-78); ANION GAP 9 mmol/L (5-15); CALCIUM 8.9 mg/dL (8.5-10.1); CHLORIDE 111 mmol/L (98-107); CREATININE 1.78 mg/dL (0.7-1.3)
[2019-12-03 23:43] LABS: ALKALINE PHOSPHATASE 87 U/L (45-117); BILIRUBIN,TOTAL 1.2 mg/dL (0.2-1.0); TOTAL PROTEIN 6.6 g/dL (6.4-8.2); TROPONIN I < 0.015 ng/mL (0.000-0.045)
[2019-12-03 23:48] LABS: BASOPHILS # (AUTO) 0.08 x10^3/uL (0-0.1); BASOPHILS % (AUTO) 1 % (0-1); EOSINOPHILS # (AUTO) 0.01 x10^3/uL (0-0.4); EOSINOPHILS % (AUTO) 0 % (1-7); LYMPHOCYTES # (AUTO) 0.39 x10^3/uL (1-3.4); LYMPHOCYTES % (AUTO) 3 % (22-44); MD SCAN; MONOCYTES # (AUTO) 0.96 x10^3/uL (0.2-0.8); MONOCYTES % (AUTO) 7 % (2-9); NEUTROPHILS # (AUTO) 12.32 x10^3/uL (1.8-6.8); NEUTROPHILS % (AUTO) 90 % (42-75)
[2019-12-04] VITALS (10 sets, daily range): BP systolic 84–106; BP diastolic 46–69
[2019-12-04] MEDS ORDERED: CLINDAMYCIN PMX 600MG/50ML 50 ML IV ONE (00:30)
--- NOTE | 2019-12-04 00:32 | NUR ---
PATIENT SLEEPING, RESPIRATIONS EVEN AND UNLABORED AT THIS TIME, VSS, NAD, CALL LIGHT IN REACH.
[2019-12-04] MEDS ORDERED: CLINDAMYCIN PMX 600MG/50ML 50 ML ONE (00:39)
[2019-12-04] MEDS ORDERED: FUROSEMIDE 40 MG/4 ML ONE (00:47)
--- NOTE | 2019-12-04 00:54 | NUR ---
ZULAY (SON) CALLED FOR UPDATE, GIVEN ROOM NUMBER FOR WHERE PATIENT WILL BE GOING UPSTAIRS.
[2019-12-04 00:56] LABS: MICROSCOPIC AUTO
[2019-12-04 00:58] LABS: CULTURE INDICATED? NO
--- NOTE | 2019-12-04 00:59 | NUR ---
blood cultures x2 drawn prior to abx admin
[2019-12-04] MEDS ORDERED: FUROSEMIDE 40 MG/4 ML IV ONE (01:00)
--- NOTE | 2019-12-04 01:04 | NUR ---
PATIENT MEDICATED PER EMAR, TOLERATED WELL. DENIES NEEDS AT THIS TIME. VSS ,NAD
--- NOTE | 2019-12-04 01:08 | NUR ---
REPORT GIVEN TO CLEMENTE CRAWFORD. PLAN OF CARE DISCUSSED. IV ABX STILL INFUSING AT TIME OF TRANSFER, ADMITTING RN AWARE.
[2019-12-04] MEDS ORDERED: ZOLPIDEM 5MG TABLET PO PRN ×2 (03:30→06:30)
[2019-12-04] MEDS ORDERED: ACETAMINOPHEN 325 MG TABLET PO PRN ×2 (03:30→06:30)
[2019-12-04] MEDS: HYDROcodone/APAP 10/325 MG TABLET PO PRN (04:37)
[2019-12-04] MEDS ORDERED: FUROSEMIDE 40 MG/4 ML IV SCH (06:00)
[2019-12-04] MEDS: CEFTRIAXONE PMX 2GM/50ML 50 ML IV SCH (06:14)
[2019-12-04] MEDS: METOPROLOL TARTRATE 25 MG TABLET PO SCH ×2 (06:14→17:56)
[2019-12-04] MEDS ORDERED: HYDROcodone/APAP 5/325 TABLET PO PRN (06:30)
[2019-12-04] MEDS ORDERED: ONDANSETRON ODT 4 MG PO PRN (06:30)
[2019-12-04] MEDS: ALLOPURINOL 300 MG TABLET PO SCH (07:59)
[2019-12-04] MEDS: TAMSULOSIN 0.4 MG CAP.ER.24H PO SCH (07:59)
[2019-12-04] MEDS: APIXABAN 5 MG TABLET PO SCH ×2 (08:00→20:21)
[2019-12-04] MEDS: METHADONE 10 MG TABLET PO SCH (08:00)
[2019-12-04] MEDS: SENNA/DOCUSATE TABLET PO SCH (08:00)
[2019-12-04] MEDS ORDERED: SPIRONOLACTONE 25 MG TABLET PO SCH (09:00)
[2019-12-04] MEDS ORDERED: APIXABAN 5 MG TABLET PO SCH (09:00)
[2019-12-04] MEDS ORDERED: METHADONE 10 MG TABLET PO SCH (09:00)
[2019-12-04] MEDS ORDERED: TAMSULOSIN 0.4 MG CAP.ER.24H PO SCH (09:00)
[2019-12-04] MEDS ORDERED: ALLOPURINOL 300 MG TABLET PO SCH (09:00)
[2019-12-04] MEDS ORDERED: METOPROLOL TARTRATE 25 MG TABLET PO SCH (09:00)
[2019-12-05 02:09] VITALS: BP 104/68
[2019-12-05] MEDS: METOPROLOL TARTRATE 25 MG TABLET PO SCH ×2 (05:56→18:13)
[2019-12-05] MEDS: CEFTRIAXONE PMX 2GM/50ML 50 ML IV SCH (05:56)
[2019-12-05 06:35] LABS: BASOPHILS # (AUTO) 0.03 x10^3/uL (0-0.1); BASOPHILS % (AUTO) 0 % (0-1); EOSINOPHILS # (AUTO) 0.44 x10^3/uL (0-0.4); EOSINOPHILS % (AUTO) 5 % (1-7); LYMPHOCYTES # (AUTO) 0.96 x10^3/uL (1-3.4); LYMPHOCYTES % (AUTO) 10 % (22-44); MD NO; MEAN CORPUSCULAR HEMOGLOBIN 30.2 pg (27.5-34.5); MEAN CORPUSCULAR HGB CONC 32.4 g/dL (33.2-36.2); MEAN CORPUSCULAR VOLUME 93.4 fL (81-97); MEAN PLATELET VOLUME 9.2 fL (7.4-10.4); MONOCYTES # (AUTO) 0.87 x10^3/uL (0.2-0.8); MONOCYTES % (AUTO) 9 % (2-9); NEUTROPHILS # (AUTO) 7.37 x10^3/uL (1.8-6.8); NEUTROPHILS % (AUTO) 76 % (42-75); PLATELET COUNT 169 x10^3/uL (130-400); RED BLOOD COUNT 3.77 x10^6/uL (4.38-5.82); RED CELL DISTRIBUTION WIDTH 14.7 % (9.4-14.8)
[2019-12-05 06:42] LABS: ALBUMIN 2.5 g/dL (3.4-5.0); ANION GAP 6 mmol/L (5-15); CALCIUM 8.6 mg/dL (8.5-10.1); CHLORIDE 110 mmol/L (98-107)
[2019-12-05 06:47] LABS: ALANINE AMINOTRANSFERASE 16 U/L (12-78); ALKALINE PHOSPHATASE 72 U/L (45-117); BILIRUBIN,TOTAL 0.6 mg/dL (0.2-1.0); CREATININE 1.52 mg/dL (0.7-1.3); TOTAL PROTEIN 5.7 g/dL (6.4-8.2)
[2019-12-05 07:50] VITALS: BP 100/65
[2019-12-05] MEDS: SENNA/DOCUSATE TABLET PO SCH (09:59)
[2019-12-05] MEDS: ALLOPURINOL 300 MG TABLET PO SCH (09:59)
[2019-12-05] MEDS: TAMSULOSIN 0.4 MG CAP.ER.24H PO SCH (09:59)
[2019-12-05] MEDS: APIXABAN 5 MG TABLET PO SCH ×2 (10:00→20:40)
[2019-12-05] MEDS: METHADONE 10 MG TABLET PO SCH (10:00)
[2019-12-05 12:53] VITALS: BP 102/65
[2019-12-05 18:08] VITALS: BP 111/74
[2019-12-05 19:46] VITALS: BP 109/62
[2019-12-05] MEDS: HYDROcodone/APAP 10/325 MG TABLET PO PRN (20:49)
[2019-12-06 00:51] VITALS: BP 105/69
[2019-12-06] MEDS: CEFTRIAXONE PMX 2GM/50ML 50 ML IV SCH (05:21)
[2019-12-06] MEDS: METOPROLOL TARTRATE 25 MG TABLET PO SCH ×2 (05:22→17:00)
[2019-12-06 08:00] VITALS: BP 104/65
[2019-12-06] MEDS: ALLOPURINOL 300 MG TABLET PO SCH (09:41)
[2019-12-06] MEDS: APIXABAN 5 MG TABLET PO SCH ×2 (09:41→20:02)
[2019-12-06] MEDS: SENNA/DOCUSATE TABLET PO SCH (09:41)
[2019-12-06] MEDS: METHADONE 10 MG TABLET PO SCH (09:41)
[2019-12-06] MEDS: TAMSULOSIN 0.4 MG CAP.ER.24H PO SCH (09:41)
[2019-12-06 13:25] VITALS: BP 107/71
[2019-12-06 20:26] VITALS: BP 105/70
[2019-12-07] MEDS: HYDROcodone/APAP 10/325 MG TABLET PO PRN ×2 (00:23→04:34)
[2019-12-07 02:02] VITALS: BP 112/77
[2019-12-07] MEDS: CEFTRIAXONE PMX 2GM/50ML 50 ML IV SCH (04:34)
[2019-12-07 06:21] VITALS: BP 104/65
[2019-12-07] MEDS: METOPROLOL TARTRATE 25 MG TABLET PO SCH (06:22)
[2019-12-07 07:14] LABS: ALBUMIN 2.2 g/dL (3.4-5.0); ANION GAP 5 mmol/L (5-15); CALCIUM 8.1 mg/dL (8.5-10.1); CHLORIDE 110 mmol/L (98-107)
[2019-12-07 07:17] LABS: ALANINE AMINOTRANSFERASE 13 U/L (12-78); ALKALINE PHOSPHATASE 84 U/L (45-117); BILIRUBIN,TOTAL 0.4 mg/dL (0.2-1.0); CREATININE 1.06 mg/dL (0.7-1.3); TOTAL PROTEIN 5.5 g/dL (6.4-8.2)
[2019-12-07 07:45] VITALS: BP 102/64
[2019-12-07] MEDS: TAMSULOSIN 0.4 MG CAP.ER.24H PO SCH (08:51)
[2019-12-07] MEDS: METHADONE 10 MG TABLET PO SCH (08:51)
[2019-12-07] MEDS: APIXABAN 5 MG TABLET PO SCH (08:51)
[2019-12-07] MEDS: SENNA/DOCUSATE TABLET PO SCH (08:51)
[2019-12-07] MEDS: ALLOPURINOL 300 MG TABLET PO SCH (08:51)
[2019-12-07 13:35] VITALS: BP_SYST 112; BP_SYST 94; BP_DIAS 55; BP_DIAS 77
[2019-12-07] MEDS ORDERED: METO25TA35 PO (13:53)
[2019-12-07] MEDS ORDERED: LEVO500T47 PO (15:51)
== END 2019-12-07 16:14 | disposition home health service (06) | DRG 871 ==
LOC: ED 23:07 → EDIP 12-04 01:22 → 4WST 12-04 01:30 → DCLOUNGE 12-07 15:56
PROVIDERS: ADMIT Internal Medicine; ATTEND Internal Medicine
DX: A41.89 Other specified sepsis (principal); I50.33 Acute on chronic diastolic (congestive) heart failure; L03.116 Cellulitis of left lower limb; J96.11 Chronic respiratory failure with hypoxia; N17.9 Acute kidney failure, unspecified; E46 Unspecified protein-calorie malnutrition; I13.0 Hypertensive heart and chronic kidney disease with heart failure and stage 1 through stage 4 chronic kidney disease, or unspecified chronic kidney disease; I48.20 Chronic atrial fibrillation, unspecified; L03.115 Cellulitis of right lower limb; D64.9 Anemia, unspecified; D75.89 Other specified diseases of blood and blood-forming organs; E11.22 Type 2 diabetes mellitus with diabetic chronic kidney disease; E66.9 Obesity, unspecified; G89.29 Other chronic pain; I27.29 Other secondary pulmonary hypertension; J44.9 Chronic obstructive pulmonary disease, unspecified; M17.0 Bilateral primary osteoarthritis of knee; N18.9 Chronic kidney disease, unspecified; R55 Syncope and collapse; N40.0 Benign prostatic hyperplasia without lower urinary tract symptoms; Z79.01 Long term (current) use of anticoagulants; Z68.34 Body mass index [BMI] 34.0-34.9, adult
CPT/HCPCS: 36415; 36600; 70450; 71045; 80053; 81001; 82803; 82962; 83036; 83880; 84484; 85025; 87040; 87070; 87077; 87186; 87205; 93005; 93306; 96374; 96375; G0378; J0696; J1940